=== PATIENT | female | born 1940 | race African-American/Black ===

== ENCOUNTER 2017-01-05 13:14 | Emergency (ER) | payer MEDICARE, MEDICAID ==
[~2017-01-05] VITALS: Ht 162.6 cm; Wt 74.0 kg
[~2017-01-05 13:14] MED LIST: ASPI-1159 PO; ATOR10TA69 PO; GLIPIZIDE PO; INSU3INS6 SUBCUT; LINA5TAB PO; REFRESH EACHEYE; vitamin c PO
[2017-01-05 15:02] LABS: BASOPHILS % 0.5 % (0.0-2.0); EOSINOPHILS % 0.6 % (0.0-5.0); HEMATOCRIT. 36.4 % (36.0-48.0); HEMOGLOBIN. 12.2 g/dL (12.0-16.0); LYMPHOCYTES % 47.9 % (20.0-50.0); MEAN CORPUSCULAR HEMOGLOBIN 30.1 pg (28.0-32.0); MEAN CORPUSCULAR VOLUME 89.8 fL (81.0-99.0); MEAN PLATELET VOLUME 7.6 fl (7.4-10.4); MONOCYTES % 9.2 % (2.0-8.0); NEUTROPHILS % 41.8 % (40.0-76.0); PLATELET 158 x1000/uL (130-400); RED BLOOD CELL COUNT 4.06 mill/uL (4.2-5.4); RED CELL DISTRIBUTION WIDTH 13.7 % (11.6-14.6)
[2017-01-05 15:15] LABS: CARBON DIOXIDE 34 mEq/L (21-32); CHLORIDE 101 mEq/L (98-107)
[2017-01-05 15:24] LABS: CLARITY URINE CLEAR (CLEAR); COLOR URINE YELLOW (YELLOW); KETONES URINE NEGATIVE (NEGATIVE); LEUKOCYTE ESTERASE URINE TRACE (NEGATIVE); NITRITE URINE NEGATIVE (NEGATIVE); OCCULT BLOOD URINE NEGATIVE (NEGATIVE); PROTEIN URINE NEGATIVE (NEGATIVE); SPECIFIC GRAVITY URINE 1.003 (1.005-1.030); UROBILINOGEN URINE 0.2 E.U./dL (0.2-1.0)
[2017-01-05 16:16] VITALS: BP 115/60
== END 2017-01-05 16:20 | disposition home or self-care (01) ==
LOC: ER 13:15
DX: E11.65 Type 2 diabetes mellitus with hyperglycemia (principal); I50.9 Heart failure, unspecified; E78.00 Pure hypercholesterolemia, unspecified; Z79.4 Long term (current) use of insulin; Z79.82 Long term (current) use of aspirin; Z88.0 Allergy status to penicillin; Z88.6 Allergy status to analgesic agent; Z90.49 Acquired absence of other specified parts of digestive tract; Z90.710 Acquired absence of both cervix and uterus
CPT/HCPCS: 36415; 80053; 81001; 85025; 99284

== ENCOUNTER → 2017-10-14 | Outpatient (CLI) | payer MEDICARE, MEDICAID | END | disposition home or self-care (01) | LOC: US 09:50 | PROVIDERS: ATTEND Internal Medicine Nephrology | DX: N20.0 Calculus of kidney (principal); R31.9 Hematuria, unspecified; Z90.710 Acquired absence of both cervix and uterus | CPT/HCPCS: 74018; 76830; 76856 ==

== ENCOUNTER → 2018-09-19 | Outpatient (CLI) | payer MEDICARE, MEDICAID | END | disposition home or self-care (01) | LOC: RAD 11:11 | PROVIDERS: ATTEND Internal Medicine Nephrology | DX: M16.11 Unilateral primary osteoarthritis, right hip (principal) | CPT/HCPCS: 73502 ==

== ENCOUNTER → 2018-10-03 | Outpatient (CLI) | payer MEDICARE, MEDICAID | END | disposition home or self-care (01) | LOC: CT 11:20 | PROVIDERS: ATTEND Urology | DX: K57.30 Diverticulosis of large intestine without perforation or abscess without bleeding (principal); K31.89 Other diseases of stomach and duodenum | CPT/HCPCS: 74176 ==

== ENCOUNTER → 2019-07-12 | Outpatient (CLI) | payer MEDICARE, MEDICAID ==
[~2019-07-12] MED LIST changes: -ASPI-1159 PO; +ASPI-1393 PO
== END | disposition home or self-care (01) ==
LOC: RAD 12:02
PROVIDERS: ATTEND Internal Medicine Nephrology
DX: Z01.818 Encounter for other preprocedural examination (principal); I70.0 Atherosclerosis of aorta
CPT/HCPCS: 71045

== ENCOUNTER → 2020-12-16 | Outpatient (CLI) | payer MEDICARE, MEDICAID ==
[~2020-12-16] MED LIST changes: -ASPI-1393 PO; +ASPI-1497 PO
== END | disposition home or self-care (01) ==
LOC: MAMMO 08:23
PROVIDERS: ATTEND Internal Medicine Nephrology
DX: Z12.31 Encounter for screening mammogram for malignant neoplasm of breast (principal); M81.0 Age-related osteoporosis without current pathological fracture; M85.88 Other specified disorders of bone density and structure, other site
CPT/HCPCS: 77063; 77067; 77080

== ENCOUNTER → 2022-09-27 | Outpatient (CLI) | payer MEDICARE, MEDICAID ==
[~2022-09-27] MED LIST changes: +DIF15 MT; +MUPI22OI2 TP
== END | disposition home or self-care (01) ==
LOC: MAMMO 10:00
PROVIDERS: ATTEND Internal Medicine Nephrology
DX: Z12.31 Encounter for screening mammogram for malignant neoplasm of breast (principal)
CPT/HCPCS: 77063; 77067

== ENCOUNTER → 2023-12-06 | Outpatient (CLI) | payer MEDICARE, MEDICAID | END | disposition home or self-care (01) | LOC: MAMMO 10:14 | PROVIDERS: ATTEND Internal Medicine Nephrology | DX: Z12.31 Encounter for screening mammogram for malignant neoplasm of breast (principal) | CPT/HCPCS: 77063; 77067 ==